=== PATIENT | female | born 1970 | race African-American/Black ===

== ENCOUNTER 2019-12-03 03:54 | Emergency (ER) | payer MEDICAID ==
[~2019-12-03] VITALS: Ht 162.6 cm; Wt 67.1 kg
[2019-12-03 06:49] VITALS: BP 128/98
[2019-12-03] MEDS ORDERED: HYDROcodone-ACET 7.5/325MG TAB PO ONE (07:15)
[2019-12-03] MEDS ORDERED: HYDROcodone-ACET 5/325MG TAB PO ONE (07:15)
== END 2019-12-03 07:20 | disposition home or self-care (01) ==
LOC: ER 03:56
DX: M25.511 Pain in right shoulder (principal); G89.29 Other chronic pain; I10 Essential (primary) hypertension; Z76.0 Encounter for issue of repeat prescription